=== PATIENT | male | born 1945 | race Caucasian/White ===

== ENCOUNTER → 2020-09-02 10:35 | Outpatient (BNVA) | payer BC, SELFPAY | PROVIDERS: Visit Provider Urology | DX: Z76.89 Persons encountering health services in other specified circumstances (principal) ==

== ENCOUNTER → 2021-02-22 10:16 | Outpatient (BNVA) | payer BC, SELFPAY | PROVIDERS: Visit Provider Urology ==

== ENCOUNTER → 2021-03-10 12:46 | Outpatient (BNVA) | payer BC, SELFPAY | PROVIDERS: Visit Provider Urology | DX: N40.1 Benign prostatic hyperplasia with lower urinary tract symptoms (principal); N41.9 Inflammatory disease of prostate, unspecified | CPT/HCPCS: 52000; 81002 ==

== ENCOUNTER → 2021-03-23 10:22 | Outpatient (BNVA) | payer BC, SELFPAY | PROVIDERS: Visit Provider Urology ==

== ENCOUNTER → 2021-12-20 14:32 | Outpatient (BNVA) | payer BC, SELFPAY | PROVIDERS: Visit Provider Urology ==

== ENCOUNTER → 2022-10-24 13:20 | Outpatient (BNVA) | payer BC, SELFPAY | PROVIDERS: PCP Family Medicine; Visit Provider Urology | DX: N41.9 Inflammatory disease of prostate, unspecified (principal) | CPT/HCPCS: 51798 ==

== ENCOUNTER → 2022-12-26 14:11 | Outpatient (BNVA) | payer BC, SELFPAY | PROVIDERS: PCP Family Medicine; Visit Provider Urology | DX: Z13.89 Encounter for screening for other disorder (principal) ==

== ENCOUNTER → 2023-03-27 15:01 | Outpatient (BNVA) | payer BC, SELFPAY | PROVIDERS: PCP Family Medicine; Visit Provider Urology ==

== ENCOUNTER 2023-06-12 08:26 | Outpatient (REF) | payer BC, SELFPAY ==
[2023-06-12 11:09] LABS: Appearance Urine Clear; Color Urine Dark Yellow; Glucose Urine UA Negative (Negative); Leukocyte Esterase Urine Negative (Negative); Nitrite Urine Negative (Negative); PH 5.5 (5.0-9.0); Urine Blood Negative (Negative); Urine Ketones Trace mg/dL (Negative); Urine Protein Negative (Neg-Trace)
[2023-06-12 11:27] LABS: Bacteria Urine None Seen (None Seen); Calcium Oxalate Crystals Urine Present; Squamous Epithelial Cell Urine 0-2 /HPF (0-2); WBC Urine 0-5 /HPF (0-5)
== END 2023-06-12 08:27 | disposition home or self-care (01) ==
LOC: HO.10HDLNP 08:26
PROVIDERS: Visit Provider Urology
DX: N40.1 Benign prostatic hyperplasia with lower urinary tract symptoms (principal)
CPT/HCPCS: 81001; 87086

== ENCOUNTER 2023-07-27 15:13 | Outpatient (AMB) | payer BC, SELFPAY ==
--- NOTE | 2023-07-27 15:26 | MHC.OFFVIS ---
Intake Intake Visit Reasons: 4m follow up Intake Note: Patient presents for follow up BPH/Prostatitis/Erectile Dysfunction Urology Medications: finasteride, sildenafil Blood Thinner: none Director Of Field Sales Required: No Accompanied by: Self / Same As Patient Allergies No Known Allergies Allergy (Verified 07/27/23 15:29) Medication List - Last Reconciled 07/27/23 by Jhonatan Carrion MD amitriptyline 25 mg PO BEDTIME atorvastatin 80 mg PO DAILY ciprofloxacin HCl 250 mg PO DAILY 90 days ezetimibe 10 mg PO DAILY finasteride 5 mg PO DAILY 90 days lansoprazole 30 mg PO BID pregabalin 75 mg PO rizatriptan 5 mg PO sildenafil 100 mg PO ONCE 30 days tramadol 100 mg PO Q8H umeclidinium-vilanterol 62.5-25 mcg/actuation (Anoro Ellipta) 1 ea inhalation DAILY HPI HPI Comments History of Present Illness Details Eleno is a pleasant male. He is a patient of Dr. Gómez. He is in for the following urologic conditions - BPH - recurring prostatitis - erectile dysfunction Prostatitis follow-up Just completed 6 months of low-dose ciprofloxacin Remains on finasteride Does feel this been significant improvement Also has been on Augmentin for a leg infection which has helped Last PSA 6.1 Lower Urinary Tract Symptoms: Prior treatment with linezolid in May and June 2021 which had 75% improvement for prostatitis symptoms - Augmentin helped but did not completely resolve Good response to Levaquin after DNA analysis Current visit is for further evaluation of, lower urinary tract symptoms, predominate obstructive symptoms. Current treatment includes - restart finasteride Prior treatments include TURP - 2011 Dr Martel 07/31 laser re-do in office. Prostate Symptom Score Moderate (9-19), Bother 3 08/30 , Mild (0-8), Bother 2. Symptoms include - Prior Prostate Score mild. PSA 03/31 PSA 1.9, 09/02 6.1 Prostatitis Complicated course with multiple species DNA analysis - Citrobacter / Sensitive to Suprax and Levaquin - Resistant to Bactrim and Augmentin Prior cystoscopy open TURP defect Did respond 6 month course of low-dose Levaquin Placed on finasteride to try to prevent recurrence PFSH Medical History Headache, migraine GERD (gastroesophageal reflux disease) Hyperlipidemia Nocturia Chronic prostatitis Benign prostatic hyperplasia with lower urinary tract symptoms Feeling of incomplete bladder emptying Surgical History H/O spinal fusion History of appendectomy Review of Systems Const Denies chills and Denies fever(s) Card Reports no additional complaints and Denies syncope Resp Denies cough GI Denies abdominal pain and Denies heartburn Reports as per HPI and Denies change in libido Neuro Denies syncope Psych Denies change in libido Endo Denies change in libido Physical Exam Const General: cooperative, healthy appearing, comfortable and no acute distress Orientation/consciousness: patient oriented x3 HEENT Face and sinus: Yes normal facial exam Mouth: moist mucous membranes Neck Neck: Yes normal visual inspection, Yes full ROM and Yes trachea midline Chest Chest palpation & inspection: normal inspection of the chest Resp Effort & Inspection: normal respiratory effort, able to speak in complete sentences and no respiratory distress GI Inspection: Yes normal to inspection Back/Spine/Pelvis Cervical Spine: normal cervical lordosis Thoracic/Lumbar Spine: thoracic and lumbar spine normal to inspection Skin General skin exam: no rashes or lesions noted Neuro General: patient oriented x3, gait normal, tone normal and moves all extremities Extrem General: Yes normal to inspection and Yes capillary refill normal Office Procedures Post Void Residual Post Residual Void Post Void Residual (PVR): 26 [id number] Void Residual by ultrasound Results AMB Urinalysis, Automated UA Leukoctes 0 Seema/uL Last Edit by [facility] Bean on 07/27/23 15:46 UA Nitrite Negative Last Edit by Janie Bean on 07/27/23 15:46 UA Urobilinogen 0.2 mg/dL Last Edit by Janie Bean on 07/27/23 15:46 UA Protein 15 mg/dL Last Edit by [facility] Bean on 07/27/23 15:46 UA pH 6.0 Last Edit by Janie Bean on 07/27/23 15:46 UA Blood 0 Yung/uL Last Edit by Janie Bean on 07/27/23 15:46 UA Specific [place] 1.025 Last Edit by [facility] Bean on 07/27/23 15:46 UA Ketone Negative Last Edit by [facility] Bean on 07/27/23 15:46 UA Bilirubin 0.2 mg/dL Last Edit by Janie Bean on 07/27/23 15:46 UA Glucose 0 mg/dL Last Edit by Janie Bean on 07/27/23 15:46 Results Reviewed Results Reviewed: Laboratory Last Values Urine pH (Auto) 6.0 07/27/23 15:30 Specific [place] (Auto) 1.025 07/27/23 15:30 Urine Protein (Auto) 15 mg/dL 07/27/23 15:30 Glucose (UA)(Auto) 0 mg/dL 07/27/23 15:30 Urine Ketones (Auto) Negative 07/27/23 15:30 Urine Blood (Auto) 0 Yung/uL 07/27/23 15:30 Urine Nitrite (Auto) Negative 07/27/23 15:30 Urine Bilirubin (Auto) 0.2 mg/dL 07/27/23 15:30 Urine Urobilinogen (Auto) 0.2 mg/dL 07/27/23 15:30 Leukocyte Esterase (Auto) 0 Seema/uL 07/27/23 15:30 Assessment & Plan Assessment & Plan (1) Prostatitis: Code(s): N41.9 - Inflammatory disease of prostate, unspecified (2) BPH loc w urin obs/LUTS: Code(s): N40.1 - Benign prostatic hyperplasia with lower urinary tract symptoms Plan Six month follow-up tele Orders: Orders AMB Post Void Residual by ultrasound Today N40.1 - Benign prostatic hyperplasia with lower urinary tract symptoms AMB Urinalysis Automated Today Z13.9 - Encounter for screening, unspecified Patient Instructions: Imaging studies, laboratory and physical exam results were discussed and reviewed in detail. No major barriers to patient understanding were identified. An opportunity to ask questions regarding the treatment plan was provided. All questions were answered. The patient expressed understanding and agreement with the above treatment plan. The patient is aware they should contact our office by phone for worsening of their current condition or the appearance of new urologic symptoms. Compliance is encouraged with any medications and followup testing that is ordered. It is a privilege to participate in the urologic care of your patient. If you have any questions or concerns regarding treatment for the above conditions, or other urologic issues, please do not hesitate to contact me. The office telephone contact is [phone]. This note is constructed using voice recognition software. While every effort has been made to ensure accuracy contractor general building errors may have been included. Yours sincerely, Dr Jhonatan Carrion MD, [facility] - Urology Providers of Expert, Compassionate Care for the Genitourinary System Coding Level of Care Code Est Pt Level 3 (98104) Diagnoses Prostatitis N41.9 BPH loc w urin obs/LUTS N40.1 CPT Codes Post Residual Void - PVR CPT Code: 23270-Yvkc Void Residual by ultrasound ([id number])
== END 2023-07-27 16:10 | disposition home or self-care (01) ==
PROVIDERS: PCP Family Medicine; Visit Provider Urology
DX: N41.9 Inflammatory disease of prostate, unspecified (principal); N40.1 Benign prostatic hyperplasia with lower urinary tract symptoms; Z13.9 Encounter for screening, unspecified
CPT/HCPCS: 99213

== ENCOUNTER → 2023-07-27 15:13 | Outpatient (BNVA) | payer BC, SELFPAY | PROVIDERS: Visit Provider Urology | DX: N41.9 Inflammatory disease of prostate, unspecified (principal); N40.1 Benign prostatic hyperplasia with lower urinary tract symptoms; N13.8 Other obstructive and reflux uropathy | CPT/HCPCS: 51798; 81003 ==

== ENCOUNTER 2023-10-23 15:25 | Outpatient (AMB) | payer BC, SELFPAY ==
--- NOTE | 2023-10-23 15:26 | MHC.OFFVIS ---
Intake Intake Visit Reasons: 6m follow up Intake Note: Patient is Present for Telephone Follow Up Urology Med: Finasteride, Sildenafil, Antibiotic Allergy: none Blood Thinner: None Pharamcy: Allergies No Known Allergies Allergy (Verified 07/27/23 15:29) Medication List - Last Reconciled 10/23/23 by Jhonatan Carrion MD amitriptyline 25 mg PO BEDTIME atorvastatin 80 mg PO DAILY ciprofloxacin HCl 250 mg PO DAILY 90 days ezetimibe 10 mg PO DAILY finasteride 5 mg PO DAILY 90 days lansoprazole 30 mg PO BID pregabalin 75 mg PO rizatriptan 5 mg PO sildenafil 100 mg PO ONCE 30 days tramadol 100 mg PO Q8H umeclidinium-vilanterol 62.5-25 mcg/actuation (Anoro Ellipta) 1 ea inhalation DAILY HPI HPI Comments History of Present Illness Details Eleno is a pleasant male. He is a patient of Dr. Gómez. He is in for the following urologic conditions - BPH - recurring prostatitis - erectile dysfunction Telemedicine Evaluation 15 min Consultation [employer] attempted Prostatitis follow-up Remains on finasteride Has prostate discomfort Will get a pelvic CT to look for prostate stones since persistent recurrent prostatitis PSA 11/02 6.1 Lower Urinary Tract Symptoms: Prior treatment with linezolid in May and June 2021 which had 75% improvement for prostatitis symptoms - Augmentin helped but did not completely resolve Good response to Levaquin after DNA analysis Current visit is for further evaluation of, lower urinary tract symptoms, predominate obstructive symptoms. Current treatment includes - restart finasteride Prior treatments include TURP - 2011 Dr Martel 07/31 laser re-do in office. Prostate Symptom Score Moderate (9-19), Bother 3 08/30 , Mild (0-8), Bother 2. Symptoms include - Prior Prostate Score mild. PSA 03/31 PSA 1.9, 09/02 6.1 Prostatitis Complicated course with multiple species DNA analysis - Citrobacter 03/02 Sensitive to Suprax and Levaquin - Resistant to Bactrim and Augmentin Prior cystoscopy open TURP defect Did respond 6 month course of low-dose Levaquin Placed on finasteride to try to prevent recurrence PFSH Medical History Headache, migraine GERD (gastroesophageal reflux disease) Hyperlipidemia Nocturia Chronic prostatitis Benign prostatic hyperplasia with lower urinary tract symptoms Feeling of incomplete bladder emptying Surgical History H/O spinal fusion History of appendectomy Review of Systems Const All systems reviewed & are unremarkable except as noted in HPI and below Reports no additional complaints Resp Reports no additional complaints GI Reports no additional complaints Reports as per HPI Musc Reports no additional complaints Physical Exam Telemedicine evaluation Appropriate responses Regular breathing rate and rhythm HEENT Head: Yes normal to inspection Ears: hearing grossly normal bilaterally Eyes General: appearance normal, both eyes and all related structures Neck Neck: Yes normal visual inspection Chest Chest palpation & inspection: normal inspection of the chest Resp Effort & Inspection: normal respiratory effort and able to speak in complete sentences Assessment & Plan Assessment & Plan (1) Prostatitis: Code(s): N41.9 - Inflammatory disease of prostate, unspecified (2) Erectile dysfunction: Code(s): N52.9 - Male erectile dysfunction, unspecified Plan Planned CT pelvis Orders: Orders CT pelvis wo IV con Today N41.9 - Inflammatory disease of prostate, unspecified Medications: Refilled finasteride 5 mg PO DAILY 90 days 90 tabs 3RF N41.9 - Inflammatory disease of prostate, unspecified, R33.9 - Retention of urine, unspecified Patient Instructions: Imaging studies, laboratory and physical exam results were discussed and reviewed in detail. No major barriers to patient understanding were identified. An opportunity to ask questions regarding the treatment plan was provided. All questions were answered. The patient expressed understanding and agreement with the above treatment plan. The patient is aware they should contact our office by phone for worsening of their current condition or the appearance of new urologic symptoms. Compliance is encouraged with any medications and followup testing that is ordered. It is a privilege to participate in the urologic care of your patient. If you have any questions or concerns regarding treatment for the above conditions, or other urologic issues, please do not hesitate to contact me. The office telephone contact is [phone]. This note is constructed using voice recognition software. While every effort has been made to ensure accuracy call center analyst errors may have been included. Yours sincerely, Dr Jhonatan Carrion MD, [facility] - Urology Providers of Expert, Compassionate Care for the Genitourinary System Telehealth Telehealth Location of provider rendering services: practice address Location of patient: address on file Patient Identification confirmed using: Name, : Yes Telehealth method: video Patient verbally consented to treatment: Yes Patient verbally consented to billing insurance company: Yes Patient informed of any privacy concerns related to visit: Yes Coding Level of Care Code Tele Est Pt Level 3 (48765) Diagnoses Prostatitis N41.9 Erectile dysfunction N52.9
== END 2023-10-23 15:58 | disposition home or self-care (01) ==
LOC: HO.HUSH 15:25
PROVIDERS: PCP Family Medicine; Visit Provider Urology
DX: N41.9 Inflammatory disease of prostate, unspecified (principal); N52.9 Male erectile dysfunction, unspecified
CPT/HCPCS: 99213

== ENCOUNTER → 2023-10-23 15:25 | Outpatient (BNVA) | payer BC, SELFPAY | PROVIDERS: PCP Family Medicine; Visit Provider Urology ==

== ENCOUNTER 2023-11-23 13:04 | Outpatient (REF) | payer BC, SELFPAY ==
--- NOTE | ~2023-11-23 | CT_ITS ---
EXAMINATION: CT PELVIS WITHOUT CONTRAST CLINICAL INFORMATION: Inflammatory disease of the prostate. COMPARISON: None available. TECHNIQUE: Helical scanning was performed with submillimeter collimation through the pelvis. Sagittal and coronal multiplanar 2-D reconstructions were obtained. This CT examination was performed using dose optimization techniques as appropriate, variously including the following: *Automated exposure control *Adjustment of mA and/or kV according to patient size (this includes techniques or standardized protocols for targeted exams where dose is matched to indication/reason for exam; i.e. extremities or head) *Use of iterative reconstruction technique DLP: 674 mGy-cm KIDNEYS AND URETERS: Only the most caudal portion of the left kidney is visualized. There is an approximately 2 cm benign left lower pole simple renal cyst for which no further dedicated follow up imaging is indicated. 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 Grossly unremarkable. GASTROINTESTINAL TRACT: Few sigmoid diverticula without evidence of diverticulitis. Normal-appearing distal ileum. No evidence of appendicitis. ABDOMINAL WALL: No significant hernia is appreciated. LYMPH NODES: No evidence of adenopathy by size criteria. VASCULAR: Unremarkable PELVIC VISCERA: Suspect TURP. The prostate is poorly visualized on this noncontrast CT scan, but otherwise appears grossly unremarkable. OSSEOUS STRUCTURES: Bilateral transpedicular screws, rods, disc spacing device at L4-L5. Lumbar levoscoliosis. Degenerative changes of the visualized lower lumbar spine. Narrowing of the visualized lower lumbar spinal canal. CT/CT pelvis wo IV con IMPRESSION: No acute finding.
== END 2023-11-23 13:05 | disposition home or self-care (01) ==
LOC: HO.CT 13:04
PROVIDERS: PCP Family Medicine; Visit Provider Urology
DX: N41.9 Inflammatory disease of prostate, unspecified (principal)
CPT/HCPCS: 72192

== ENCOUNTER 2023-11-30 13:15 | Outpatient (AMB) | payer BC, SELFPAY ==
--- NOTE | 2023-11-30 13:30 | A.OFFVIS_ITS ---
Intake Intake Visit Reasons: 4w/CT(set) Intake Note: Patient is Present for Follow Up CT Urology Medication: Finasteride Antibiotic Allergies:None Blood Thinners: Aspirin PVR: 0 Allergies No Known Allergies Allergy (Verified 11/30/23 13:31) HPI HPI Comments History of Present Illness Details Eleno is a pleasant male. He is a patient of Dr. Gómez. He is in for the following urologic conditions - BPH - recurring prostatitis - erectile dysfunction Prostatitis follow-up Pelvic CT minimal stones within prostate Will trial meloxicam on demand for recurrence Six-month follow-up PSA 11/02 6.1 Lower Urinary Tract Symptoms: Prior treatment with linezolid in May and June 2021 which had 75% improvement for prostatitis symptoms - Augmentin helped but did not completel y resolve Good response to Levaquin after DNA analysis Current visit is for further evaluation of, lower urinary tract symptoms, predominate obstructive symptoms. Current treatment includes - restart finasteride Prior treatments include TURP - 2011 Dr Martel 07/31 laser re-do in office. Prostate Symptom Score Moderate (9-19), Bother 3 08/30 , Mild (0-8), Bother 2. Symptoms include - Prior Prostate Score mild. PSA 03/31 PSA 1.9, 09/02 6.1 Prostatitis Complicated course with multiple species DNA analysis - Citrobacter 03/02 Sensitive to Suprax and Levaquin - Resistant to Bactrim and Augmentin Prior cystoscopy open TURP defect Did respond 6 month course of low-dose Levaquin Placed on finasteride to try to prevent recurrence PFSH Medical History Headache, migraine GERD (gastroesophageal reflux disease) Hyperlipidemia Nocturia Chronic prostatitis Benign prostatic hyperplasia with lower urinary tract symptoms Feeling of incomplete bladder emptying Surgical History H/O spinal fusion History of appendectomy Review of Systems Const Denies chills and Denies fever(s) Card Reports no additional complaints and Denies syncope Resp Denies cough GI Denies abdominal pain and Denies heartburn Reports as per HPI and Denies change in libido Neuro Denies syncope Psych Denies change in libido Endo Denies change in libido Physical Exam Const General: cooperative, healthy appearing, comfortable and no acute distress Orientation/consciousness: patient oriented x3 HEENT Face and sinus: Yes normal facial exam Mouth: moist mucous membranes Neck Neck: Yes normal visual inspection, Yes full ROM and Yes trachea midline Chest Chest palpation & inspection: normal inspection of the chest Resp Effort & Inspection: normal respiratory effort, able to speak in complete sentences and no respiratory distress GI Inspection: Yes normal to inspection Back/Spine/Pelvis Cervical Spine: normal cervical lordosis Thoracic/Lumbar Spine: thoracic and lumbar spine normal to inspection Skin General skin exam: no rashes or lesions noted Neuro General: patient oriented x3, gait normal, tone normal and moves all extremities Extrem General: Yes normal to inspection and Yes capillary refill normal Office Procedures Post Void Residual Post Residual Void Post Void Residual (PVR): 0 [id number] Void Residual by ultrasound Assessment & Plan Assessment & Plan (1) Erectile dysfunction: Code(s): N52.9 - Male erectile dysfunction, unspecified (2) BPH loc w urin obs/LUTS: Code(s): N40.1 - Benign prostatic hyperplasia with lower urinary tract symptoms Plan Six-month follow-up Orders: Orders AMB Post Void Residual by ultrasound Today N40.1 - Benign prostatic hyperplasia with lower urinary tract symptoms Medications: New meloxicam Take 1 tablet daily for 3 days when prostatitis starts to flare 15 mg PO DAILY 30 days 30 tabs 0RF N41.9 - Inflammatory disease of prostate, unspecified Patient Instructions: Imaging studies, laboratory and physical exam results were discussed and reviewed in detail. No major barriers to patient understanding were identified. An opportunity to ask questions regarding the treatment plan was provided. All questions were answered. The patient expressed understanding and agreement with the above treatment plan. The patient is aware they should contact our office by phone for worsening of their current condition or the appearance of new urologic symptoms. Compliance is encouraged with any medications and followup testing that is ordered. It is a privilege to participate in the urologic care of your patient. If you have any questions or concerns regarding treatment for the above conditions, or other urologic issues, please do not hesitate to contact me. The office telephone contact is [phone]. This note is constructed using voice recognition software. While every effort has been made to ensure accuracy switching operator errors may have been included. Yours sincerely, Dr Jhonatan Carrion MD, [facility] - Urology Providers of Expert, Compassionate Care for the Genitourinary System Coding Level of Care Code Est Pt Level 4 (41393) Diagnoses Erectile dysfunction N52.9 BPH loc w urin obs/LUTS N40.1 CPT Codes Post Residual Void - PVR CPT Code: 72227-[id number] Void Residual by ultrasound ([id number])
== END 2023-11-30 13:53 | disposition home or self-care (01) ==
PROVIDERS: PCP Family Medicine; Visit Provider Urology
DX: N52.9 Male erectile dysfunction, unspecified (principal); N40.1 Benign prostatic hyperplasia with lower urinary tract symptoms
CPT/HCPCS: 99214

== ENCOUNTER → 2023-11-30 13:15 | Outpatient (BNVA) | payer BC, SELFPAY | PROVIDERS: PCP Family Medicine; Visit Provider Urology | DX: N40.1 Benign prostatic hyperplasia with lower urinary tract symptoms (principal); N13.8 Other obstructive and reflux uropathy; N52.9 Male erectile dysfunction, unspecified | CPT/HCPCS: 51798 ==

== ENCOUNTER 2024-06-03 09:09 | Outpatient (AMB) | payer BC, SELFPAY ==
--- NOTE | 2024-06-03 08:55 | A.OFFVIS_ITS ---
Intake Visit Reasons: 6M Follow up Intake Note: Patient is Present for 6m Follow Up Urology Medication: Finasteride,sildenafil,meloxicam Antibiotic Allergies:None Blood Thinners:none PVR: 0 Compliance Representative Required: No Allergies No Known Allergies Allergy (Verified 06/03/24 08:57) Medication List - Last Reconciled 06/03/24 by Jhonatan Carrion MD amitriptyline 25 mg PO BEDTIME atorvastatin 80 mg PO DAILY diltiazem HCl CD 180 mg PO DAILY ezetimibe 10 mg PO DAILY finasteride 5 mg PO DAILY 90 days isosorbide mononitrate ER 30 mg PO DAILY lansoprazole 30 mg PO BID meloxicam 15 mg PO DAILY 30 days pregabalin 75 mg PO rizatriptan 5 mg PO sildenafil 100 mg PO ONCE 30 days tramadol 100 mg PO Q8H umeclidinium-vilanterol 62.5-25 mcg/actuation (Anoro Ellipta) 1 ea inhalation DAILY HPI Comments Details: Eleno is a pleasant male. He is a patient of Dr. Gómez. He is in for the following urologic conditions - BPH - recurring prostatitis - erectile dysfunction Telemedicine Evaluation 15 min Consultation [employer] Recent back surgery but had fall Currently in rehab Prostatitis has been stable Refill finasteride and meloxicam Prostatitis follow-up Had on demand meloxicam for recurrence PSA 11/02 6.1 Lower Urinary Tract Symptoms: Prior treatment with linezolid in May and June 2021 which had 75% improvement for prostatitis symptoms - Augmentin helped but did not completely resolve Good response to Levaquin after DNA analysis Current visit is for further evaluation of, lower urinary tract symptoms, predominate obstructive symptoms. Current treatment includes - restart finasteride Prior treatments include TURP - 2011 Dr Martel 07/31 laser re-do in office. Prostate Symptom Score Moderate (9-19), Bother 3 08/30 , Mild (0-8), Bother 2. Symptoms include - Prior Prostate Score mild. PSA 03/31 PSA 1.9, 09/02 6.1 Prostatitis Complicated course with multiple species DNA analysis - Citrobacter 03/02 Sensitive to Suprax and Levaquin - Resistant to Bactrim and Augmentin Prior cystoscopy open TURP defect Pelvic CT minimal stones within prostate Did respond 6 month course of low-dose Levaquin Placed on finasteride to try to prevent recurrence PFSH Medical History (Updated 12/11/23 @ 15:13 by Yasemin Li) Headache, migraine GERD (gastroesophageal reflux disease) Hyperlipidemia Nocturia Chronic prostatitis Benign prostatic hyperplasia with lower urinary tract symptoms Feeling of incomplete bladder emptying Surgical History (Updated 12/11/23 @ 15:13 by Yasemin Li) H/O spinal fusion History of appendectomy Review of Systems Const All systems reviewed & are unremarkable except as noted in HPI and below Reports no additional complaints Resp Reports no additional complaints GI Reports no additional complaints Reports as per HPI Musc Reports no additional complaints Physical Exam Telemedicine evaluation Appropriate responses Regular breathing rate and rhythm HEENT Head: Yes normal to inspection Ears: hearing grossly normal bilaterally Eyes General: appearance normal, both eyes and all related structures Neck Neck: Yes normal visual inspection Chest Chest palpation & inspection: normal inspection of the chest Resp Effort & Inspection: normal respiratory effort and able to speak in complete sentences Telehealth Telehealth Telehealth Platform: [employer] Location of provider rendering services: practice address Location of patient: address on file Patient Identification confirmed using: Name, : Yes Telehealth method: video Patient verbally consented to treatment: Yes Patient verbally consented to billing insurance company: Yes Patient informed of any privacy concerns related to visit: Yes Minutes spent on Phone/Video with Pt.: 15 Assessment & Plan Assessment & Plan (1) Prostatitis: Code(s): N41.9 - Inflammatory disease of prostate, unspecified Category: Medical (2) Erectile dysfunction: Code(s): N52.9 - Male erectile dysfunction, unspecified Category: Medical Plan Six-month follow-up PVR office Orders: Orders Prostate Specific Antigen 05/22/24 Z12.5 - Encounter for screening for malignant neoplasm of prostate Medications: Refilled finasteride 5 mg PO DAILY 90 days 90 tabs 3RF N41.9 - Inflammatory disease of prostate, unspecified, R33.9 - Retention of urine, unspecified meloxicam Take 1 tablet daily for 3 days when prostatitis starts to flare 15 mg PO DAILY 30 days 30 tabs 0RF N41.9 - Inflammatory disease of prostate, unspecified Patient Instructions: Imaging studies, laboratory and physical exam results were discussed and reviewed in detail. No major barriers to patient understanding were identified. An opportunity to ask questions regarding the treatment plan was provided. All questions were answered. The patient expressed understanding and agreement with the above treatment plan. The patient is aware they should contact our office by phone for worsening of their current condition or the appearance of new urologic symptoms. Compliance is encouraged with any medications and followup testing that is ordered. It is a privilege to participate in the urologic care of your patient. If you have any questions or concerns regarding treatment for the above conditions, or other urologic issues, please do not hesitate to contact me. The office telephone contact is [phone]. This note is constructed using voice recognition software. While every effort has been made to ensure accuracy dog raiser errors may have been included. Yours sincerely, Dr Jhonatan Carrion MD, [facility] - Urology Providers of Expert, Compassionate Care for the Genitourinary System Coding Level of Care Code Tele Est Pt Level 3 (90658) Diagnoses Prostatitis N41.9 Erectile dysfunction N52.9
== END 2024-06-03 09:51 | disposition home or self-care (01) ==
LOC: HO.HUSH 09:09
PROVIDERS: PCP Family Medicine; Visit Provider Urology
DX: N41.9 Inflammatory disease of prostate, unspecified (principal); N52.9 Male erectile dysfunction, unspecified
CPT/HCPCS: 99213

== ENCOUNTER → 2024-06-03 09:09 | Outpatient (BNVA) | payer BC, SELFPAY | PROVIDERS: PCP Family Medicine; Visit Provider Urology | DX: Z12.5 Encounter for screening for malignant neoplasm of prostate (principal) ==